=== PATIENT | female | born 1955 | race Asian ===

== ENCOUNTER 2020-05-18 10:33 | Emergency (ER) | payer MEDICAID ==
[~2020-05-18] VITALS: Ht 157.5 cm; Wt 55.3 kg
[2020-05-18 10:49] VITALS: BP 134/85
[2020-05-18] MEDS ORDERED: Ketorolac 30mg Inj IM ONE (11:15)
[2020-05-18] MEDS ORDERED: LIDODERM700 M1 TOPIC (11:26)
[2020-05-18] MEDS ORDERED: ROBAXIN-750750 MG PO (11:26)
[2020-05-18] MEDS ORDERED: TYLENOL EXTRA500 MG ORAL (11:26)
[2020-05-18 11:36] VITALS: BP 134/85
--- NOTE | 2020-05-21 23:27 | Emergency Room Report ---
History of Present Illness General Chief Complaint: Pain Source: Patient Present Illness HPI 64-year-old female presents for left hip and back pain. Pain started 4 days ago. Pain is throbbing, 8 out of 10, radiating down the right leg. Denies any fall or injury. Denies fevers or chills. Is able to bear weight. No other aggravating relieving factors. Denies any other associated symptoms Allergies: Coded Allergies: No Known Allergies (Unverified , 05/18/20) COVID-19 Screening Contact w/high risk pt: No Experienced COVID-19 symptoms?: No COVID-19 Testing performed TECHNICAL SERVICE REP: No Patient History Past Medical History: HTN Past Surgical History: none Pertinent Family History: none Social History: Denies: smoking, alcohol use, drug use Now: No Immunizations: UTD Reviewed Nursing Documentation: PMH: Agreed; PSxH: Agreed Nursing Documentation-PMH Past Medical History: No History, Except For Hx Hypertension: Yes Review of Systems All Other Systems: negative except mentioned in HPI Physical Exam Vital Signs Date Time Temp Pulse Resp B/P (MAP) Pulse Ox O2 Delivery O2 Flow Rate FiO2 05/18/20 10:42 98.8 74 17 134/85 (101) 96 Room Air Sp02 EP Interpretation: reviewed, normal General Appearance: no apparent distress, alert, GCS 15, non-toxic Head: normocephalic, atraumatic Eyes: bilateral eye normal inspection, bilateral eye PERRL ENT: hearing grossly normal, normal pharynx, no angioedema, normal voice Neck: full range of motion, supple/symm/no masses Respiratory: chest non-tender, lungs clear, normal breath sounds, speaking full sentences Cardiovascular #1: regular rate, rhythm, no edema Cardiovascular #2: 2+ carotid (R), 2+ carotid (L), 2+ radial (R), 2+ radial (L), 2+ dorsalis pedis (R), 2+ dorsalis pedis (L) Gastrointestinal: normal bowel sounds, non tender, soft, non-distended, no guarding, no rebound Rectal: deferred Genitourinary: normal inspection, no CVA tenderness Musculoskeletal: back normal, normal range of motion, gait/station normal, tender - paraspinal lumbar tenderness on left Neurologic: alert, motor strength/tone normal, oriented x3, sensory intact, responsive, speech normal Psychiatric: judgement/insight normal, memory normal, mood/affect normal, no suicidal/homicidal ideation Reflexes: 3+ bicep (R), 3+ bicep (L), 3+ tricep (R), 3+ tricep (L), 3+ knee (R), 3+ knee (L) Skin: no rash Lymphatic: no adenopathy Medical Decision Making Diagnostic Impression: Primary Impression: Muscle strain ER Course Hospital Course 64 yo F presents to ED c/o L hip/back pain Differential diagnoses include: pyelonephritis, kidney stone, muscle strain, Lspine fracture Clinical course Patient placed on stretcher. After initial history physical exam reveals female in no acute distress. There is no midline lumbar tenderness. Pain in the paraspinal lumbar region radiating through the buttock. 5 out of 5 strength in lower extremity. No sensory deficits. Negative straight leg raise. I discussed findings with patient. No signs of trauma no history of trauma. Likely muscular. No imaging required. Given Toradol in ED. Safe for discharge with close outpatient follow-up. I will provide referrals Diagnosis - muscle strain Stable and discharged to home with prescription for lidoderm, robaxin, tylenol. Followup with PMD. Return to ED if symptoms recur or worsen Last Vital Signs Date Time Temp Pulse Resp B/P (MAP) Pulse Ox O2 Delivery O2 Flow Rate FiO2 05/18/20 11:36 98.8 78 17 134/85 96 Room Air Status: improved Disposition: HOME, SELF-CARE Condition: Stable Scripts Lidocaine Patch* (Lidoderm Patch*) 1 Each Adh..patch 1 PATCH TOPIC DAILY, #7 PATCH 0 Refills Patch(es) may remain in place for up to 12 hours in any 24-hour period. Prov: Selvin Rosa MD 05/18/20 Methocarbamol* (ROBAXIN-750*) 750 Mg Tablet 750 MG PO TID, #21 TAB 0 Refills Prov: Selvin Rosa MD 05/18/20 Acetaminophen* (TYLENOL EXTRA STRENGTH*) 500 Mg Tablet 500 MG ORAL Q8H PRN for Prn Headache/Temp > 101, #30 TAB 0 Refills Prov: Selvin Rosa MD 05/18/20 Referrals: NOT CHOSEN [facility]/,[facility] Open 24 hour /7 days a week by Appointment Only [id number] [facility] [id number] Patient Instructions: Muscle Strain, [id number] Selvin Rosa MD May 21, 2020 23:27
== END 2020-05-18 11:37 | disposition home or self-care (01) ==
LOC: EMR 11:28
DX: T14.8XXA Other injury of unspecified body region, initial encounter (principal); X58.XXXA Exposure to other specified factors, initial encounter; Y92.9 Unspecified place or not applicable; I10 Essential (primary) hypertension; M54.9 Dorsalgia, unspecified
CPT/HCPCS: 96372; J1885; Z7502; 99283